=== PATIENT | female | born 1990 | race Caucasian/White ===

== ENCOUNTER 2022-08-12 21:33 | Outpatient (REF) | payer OTHER, SELFPAY | END 2022-08-12 21:34 | disposition home or self-care (01) | LOC: LBN 21:33 | PROVIDERS: PCP Naturopath; Visit Provider Physician Assistant Medical | DX: J02.9 Acute pharyngitis, unspecified (principal) | CPT/HCPCS: 87635; 87798; 86618; 87081 ==

== ENCOUNTER 2022-09-14 15:40 | Outpatient (CLI) | payer OTHER, SELFPAY ==
--- NOTE | 2022-09-14 14:00 | PAPFT_PTH ---
PATIENT: Jada Yi LOC: [facility] U#:[id number] AGE/SX: 32/F ROOM: RE09/14/[address]: Augusta Gallego DO : 1990 BED: DIS: 09/14/2022 SPEC #: [id number] RECD: 09/14/22 17:18 STATUS: MANUEL REQ #: [id number] ROHAN: 09/14/22 14:[address]: Augusta Gallego DEPT: [facility] Cytology RECD BY: Apryl Goode ENTERED: 09/14/22 17:19 SP TYPE: PAPFT OTHR DR: Santo Valentine Tissues: 1 - CX/ENDOCX FOR PAP SMEARS Procedures: PAP THIN PREP/UVM Screening HPV DNA PROBE Comments: [id number]
[2022-09-14 15:58] LABS: TSH (W/Ref FT4) 0.83 uIU/mL (0.36-3.74)
[2022-09-14 16:00] LABS: HCG Quant, Pregnancy < 1 mIU/mL (1-3)
[2022-09-15 00:04] LABS: Prolactin 6.2 ng/mL (See Note)
== END 2022-09-14 15:41 | disposition home or self-care (01) ==
LOC: LBO 15:41
PROVIDERS: PCP Naturopath; Visit Provider Obstetrics & Gynecology
DX: Z11.51 Encounter for screening for human papillomavirus (HPV) (principal)
CPT/HCPCS: 36415; 88142; 84146; 84443; 84702; 87624

== ENCOUNTER 2022-12-21 14:29 | Outpatient (CLI) | payer OTHER, SELFPAY ==
[2022-12-21 11:16] LABS: HCG Quant, Pregnancy 34 mIU/mL (1-3)
== END 2022-12-21 14:30 | disposition home or self-care (01) ==
LOC: LBO 14:30
PROVIDERS: PCP Naturopath; Visit Provider Obstetrics & Gynecology
DX: O26.851 Spotting complicating pregnancy, first trimester (principal)
CPT/HCPCS: 36415; 84702

== ENCOUNTER 2022-12-24 01:48 | Outpatient (CLI) | payer OTHER, SELFPAY ==
[2022-12-24 13:31] LABS: HCG Quant, Pregnancy 58 mIU/mL (1-3)
== END 2022-12-24 01:49 | disposition home or self-care (01) ==
LOC: LBO 01:48
PROVIDERS: PCP Naturopath; Visit Provider Obstetrics & Gynecology
DX: O26.851 Spotting complicating pregnancy, first trimester (principal)
CPT/HCPCS: 36415; 84702

== ENCOUNTER 2023-01-04 10:11 | Outpatient (REF) | payer OTHER, SELFPAY ==
[2023-01-04 11:08] LABS: HCG Quant, Pregnancy 42 mIU/mL (1-3)
== END 2023-01-04 10:12 | disposition home or self-care (01) ==
LOC: LBN 10:11
PROVIDERS: PCP Naturopath; Visit Provider Obstetrics & Gynecology
DX: O26.851 Spotting complicating pregnancy, first trimester (principal)
CPT/HCPCS: 36415; 84702

== ENCOUNTER 2023-02-11 17:48 | Outpatient (REF) | payer OTHER, SELFPAY ==
[2023-02-11 19:50] LABS: Vitamin B12 452 pg/mL (193-986)
[2023-02-16 00:40] LABS: 25-Hydroxy D Total 24 ng/mL; 25-Hydroxy D2 <4.0 ng/mL; 25-Hydroxy D3 24 ng/mL
== END 2023-02-11 17:49 | disposition home or self-care (01) ==
LOC: NCHCN 17:48
PROVIDERS: PCP Nurse Practitioner Family; Visit Provider Nurse Practitioner Family
DX: Z00.00 Encounter for general adult medical examination without abnormal findings (principal)
CPT/HCPCS: 82306; 82607

== ENCOUNTER 2023-09-23 14:28 | Outpatient (REF) | payer OTHER, SELFPAY ==
--- OUTSIDE RECORDS SUMMARY | 2023-09-23 14:30 | XMS_ITS | Clinical Summary ---
Author Organization [facility] [place] [address] Care Team Providers Care Joint Cleaning Machine Operator Name Role Phone Unknown Primary Care Provider Unavailabl e Encounters Date Type Department Care Team Description 09/15/2023 Transcribe Orders eD Incoming Referrals [phone] Meredith Paige CNM History of penicillin allergy from Last 3 Months Social History Tobacco Use Types Packs/Day Years Used Date Smoking Tobacco: Never Assessed Sex and Gender Information Value Date Recorded Sex Assigned at Not on file Gender Identity Not on file Sexual Orientation Not on file Plan of Treatment Health Maintenance Due Date Last Done Comments HIV screen 2006 Hepatitis C Screening 2006 Hepatitis B vaccine (0-59 yrs) (1) 07/13/2007 Tdap adult 07/13/2007 Tetanus vaccine 07/13/2007 HPV test 2018 PAP Smear 2018 Covid-19 Vaccine ( season) 2022 Influenza (Flu) vaccine (1 o f 1 - Influenza standard series) 10/30/2023 Procedures Procedure Name Priority Date/Time Associated Diagnosis Comments ORDS - PROVIDER CARE SCAN 07/13/2023 12:00 AM EDT ORDS - PROVIDER CARE SCAN 07/13/2023 12:00 AM EDT from Last 3 Months Results * SCAN DOC: ORDS - PROVIDER CARE (07/13/2023 12:00 AM EDT) Only the most recent of2 resultswithin the time period is included. Narrative 07/13/2023 12:00 AM EDT Ordered by an unspecified provider. Scanning Provider MEDIA MGR SCAN EXT O RDR/RSLT from Last 3 Months Care Teams Joint Cleaning Machine Operator Relationship Specialty Start Date End Date Unknown None PCP - General 09/15/23
--- OUTSIDE RECORDS SUMMARY | 2023-09-23 14:30 | XMS_ITS | Encounter Summary ---
[place] [address] Care Team Providers Care Tube Dispatcher Name Role Phone Unknown Primary Care Provider Unavailabl e Reason for Referral * Allergy Testing (Routine) - Authorized Specialty Diagnoses / Procedures Referred By Cayetano johnson Referred To Contact Allergy Diagnoses History of penicillin allergy Meredith Paige CNM [address] [place] [address] [facility] [address] [place] [phone] Referral ID Status Reason Start Date Expiration Date Visits Requested Visits Authorized [id number] Authorized Consult, Test & Treat PCP Updated and/or Approved 08/22/2023 08/21/2024 6 6 Encounter Details Date Type Department Care Team (Late st Contact Info) Description 09/15/2023 Transcribe Orders eDH Incoming Referrals [phone] Meredith Paige CNM [address] [place] [address] History of penicillin allergy Social History Tobacco Use Types Packs/Day Years Used Date Smoking Tobacco: Never Assessed Sex and Gender Information Value Date Recorded Sex Assigned at Not on file Gender Identity Not on file Sexual Orientation Not on file documented as of this encounter Plan of Treatment Scheduled Referrals Name Type Priority Associated Diagnoses Orde r Schedule Referral to Allergy Outpatient Referral Routine History of penicillin allergy Ordered: 09/15/2023 documented as of this encounter Visit Diagnoses Diagnosis History of penicillin allergy Personal history of allergy to penicillin documented in this encounter Care Teams Tube Dispatcher Relationship Specialty Start Date End Date Unknown None PCP - General 09/15/23 documented as of this encounter
[2023-09-24 11:25] LABS: Bacterial Vaginosis (BV) Negative (Negative); Candida glabrata Negative (Negative); Candida species group Negative (Negative); Trichomonas vaginalis Negative (Negative)
== END 2023-09-23 14:29 | disposition home or self-care (01) ==
LOC: LBN 14:28
PROVIDERS: PCP Nurse Practitioner Family; Visit Provider Midwife
DX: N76.0 Acute vaginitis (principal); Z3A.27 27 weeks gestation of pregnancy; O26.892 Other specified pregnancy related conditions, second trimester
CPT/HCPCS: 81513; 87481; 87661

== ENCOUNTER 2023-12-23 09:02 | Inpatient (IN) | payer OTHER, SELFPAY ==
[2023-12-23] VITALS (37 sets, daily range): BP systolic 101–152; BP diastolic 56–79; PULSE 70–146; RESP 14–18; TEMP 35.7–36.8; O2SAT 96–100; BMI 30.7
--- NOTE | 2023-12-23 08:33 | HPE_ITS ---
Date of service: 12/23/23 Time of Service: 08:33 Assessment and Plan Assessment and plan (1) Prolonged rupture of membranes: Status: Acute Assessment and plan: A: 33 yo @ 40+5 wks, PROM >60 hours; desired at home, maternal exhaustion Onset of labor after castor oil yesterday but contractions diminished today Category 1 tracing, GBS negative, afebrile, normotensive Increased risk for PPH, no increase risk for SD; Complete care by homebirth service LM and she accompanies pt today Transfer care to [facility] intrapartum for labor augmentation, pain management, d elivery P: Admit to BC, CBC, T&S, UDS, initiate IVF in preparation for epidural Pt desires pain management and consents to antibiotic prophylaxis Pitocin augmentation recommended to pt, she declines at this time, wants to sleep first Dr. Gallego consulting (2) 40 weeks gestation of : Status: Acute (3) Slow progress in first stage of labor: Status: Acute OB-HPI Labor/Delivery History of Present Illness Reason for Visit: Term PROM, Prolonged Labor Chief Complaint: Other (Planned home with LM, SROM 12/19 @ 2230, labor onset 12/21, progressed to 8cm as of 0030 today per LM report, contractions diminished. Transferred to [facility] for evaluation, augmentation, pain management and safe delivery.). WILTON Calculator Estimated Delivery Date Method Current WG Current Estimate 12/18/23 LMP (Certain) 40w 5d History of Present Expected Delivery Route/Plan planned home Assessment: History Reviewed & Current (Care given by LM) Informed Consent Informed Consent: Regional Anesthesia, Risk,Benefits,Alternatives Discussed and Other (Pt consents to antibiotic prophylaxis for prolonged SROM) Review of Systems Narrative: ROS reviewed and noncontributory other than HPI PFSH All Active Problems (Updated 12/23/23 @ 13:59 by Sara Coleman) Advanced maternal age, 1st (Acute) Slow progress in first stage of labor (Acute) 40 weeks gestation of (Acute) Prolonged rupture of membranes (Acute) (Acute) Complaint of feeling depressed (Acute) Anxiety (Chronic) Medical History (Updated 12/23/23 @ 13:59 by Sara Coleman) Marijuana use Cigarette smoker Ovarian cyst Panic attacks Colon polyps Irritable bowel syndrome Spotting in early DUB (dysfunctional uterine bleeding) Family History (Updated 03/09/23 @ 16:24 by Mary Membreno RN) Mother No problems noted. Father Cancer Maternal Grandmother Breast cancer Hypertension Maternal Grandfather Colon cancer Paternal Grandfather No problems noted. Paternal Grandmother No problems noted. Social History (Updated 03/09/23 @ 16:21 by Mary Membreno RN) Smoking/Tobacco Use Status: Former Tobacco Use tobacco type: cigarettes Quit D ate: 02/28/19 Tobacco: How many years used: 10 Second Hand Exposure: Yes Smoking risk assessment performed?: Yes Alcohol Intake: current Alcohol Intake frequency: a few times a week Alcohol type: wine and hard liquor Drug use: Daily Substance use type: marijuana Adopted: No Caregiver/Support person: No Foster care: No Household members: significant other Housing: house Number of Children: 0 Communication Needs: None Education Level: college Do you need help understanding health information?: Never 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 Pets and animals: Yes Pets and animals: cat(s) and dog(s) Sexually active: Yes Do you think of yourself as: straight/heterosexual Current gender identity: female What is your relationship status?: living with partner How often do you talk on the phone with friends or family?: three or more times per week How often do you get together with friends or relatives?: once per week How often do you attend mandaen or adventist services?: decline to answer Do you belong to any clubs or organized social groups?: no Panel score (0-1 are the most socially isolated patients): 2 What type of physical activity do you participate in: walking and yoga Duration: 30-45 minutes/day Frequency: daily Dora/Hoahaoism: Non samaritan Special dora needs: No Agree to transfusion: Yes Seatbelt use: always Helmet use: Yes Helmet use: sometimes Drive intox or ride w/intox package car driver: No Working smoke detector in home: Yes Carbon monox detector in home: Yes Firearms in home: Yes Firearms unloaded and locked: Yes Do you feel safe at home: Yes Do you feel safe in your relationship?: Yes Victim of physical abuse: No Victim of emotional abuse: No Victim of sexual abuse: No History History 3 Para 0 Hx # Term Pregnancies 0 Multiple births 0 Hx # Pregnancies 0 Ectopic pregnancies 0 AB induced 1 Hx Number of Living Children 0 AB spontaneous 1 Meds Allergies and Home Medications Home Medications ?Medication ?Instructions ?Recorded ?Confirmed ?Type vits 75-iron 28 mg-folic pkg PO 12/21/22 01/04/23 History acid 800 mcg-omega3 440 mg oral pack (One Daily ) Exam Physical Exam Vital signs: Temp Resp 98.1 F 16 12/23/23 08:20 12/23/23 08:20 Vital Signs Reviewed: Yes Constitutional Constitutional: moderate distress, average body habitus and cooperative Detailed Labor and Delivery Exam Dilation: 7 Effacement (%): 100 station: -2 Cervix position: mid Stevenson Score: Cervical Points Exam 0 1 2 3 Dilation Closed 1-2cm 3-4 cm 5-6cm Effacement 0-30% 40-50% 60-70% 80% Consistency Firm Medium Soft Station -3 -2 -1,0 +1,+2 Position Posterior Mid Anterior Amniotic Membrane Status: Ruptured (12/19 @ 2230) Rupture Method: Spontaneous Amniotic Fluid: Clear Contraction Frequency(min): 1-2 per 10 minutes Contraction Intensity: Moderate Fetus A Heart Rate Baseline: 135 Monitor Accelerations: 15 X 15 Monitor Decelerations: None Variability: Moderate (6-25 BPM) Presentation: Cephalic Categories: Category I Est. Weight: 7 lb 7.931 oz Est. Weight: 3400 gms Date of Membrane Rupture: 12/20/23 Time of Membrane Rupture: 22:30 HEENT Exam HEENT Exam: Normal Neck Exam Neck Exam: Normal Chest/Brest/Axilla Exam Chest Exam: Normal Breast Exam Breast Exam: Not Done Respiratory Exam Respiratory Exam: Normal Cardiovascular Exam Cardiovascular Exam: Normal Abdominal Exam Abdominal Exam: Normal (Gravid, nontender) Rectal Exam Rectal Exam: Normal Exam Exam: Normal Extremities Exam Extremities Exam: Normal Back/Spine/Pelvis Exam Back Exam: Normal Pelvis Adequate: Yes Skin Exam Skin Exam: Normal Neurological Exam Neurological Exam: Normal Psychiatric Exam Psychiatric Exam: Normal (congruent with situation, sad, tearful, exhausted) Results Results Group Beta Strep: Negative Blood Type: A+ Rubella Status: Immune Varicella Immunity: Immune Lab Results: labs from transfer record: neg for HIV, RPR, Hep B and C, CT and GC. cfDNA screen negative. HSV IgG negative 1 hr glucola screen 156, did a 2 hr postprandial glucose which was 121, no other glucose screening in records Risk Assessment Risk for Shoulder Dystocia Increased Risk?: No Risk for Post- Hemorrhage At Risk?: Yes (prolonged SROM, prolonged labor) Counseled re: Active Management: Yes Risks Reviewed Risks Reviewed Upon Admission: Yes
[2023-12-23] MEDS: Lactated Ringers 1,000 ML 125 ML IV ×3 (09:30→18:37)
[2023-12-23 09:42] LABS: HCT 38.1 % (36.0-46.0); HGB 13.2 g/dL (11.2-15.7); MCH 31.6 pg (27.0-33.0); MCHC 34.6 % (32.0-36.0); MCV 91 fL (80-95); Platelet Count 253 10^3/uL (130-400); RBC 4.18 10^6/uL (3.93-5.22); RDW 13.1 % (11.7-14.6); RDW-SD 43.5 fL; WBC 16.19 10^3/uL (4.4-10.8)
--- NOTE | 2023-12-23 11:05 | W.ANESNEU ---
Epidural/Spinal Catheter Date Performed: 12/23/23 Procedure Start: 10:30 Procedure Stop: 11:00 Requesting Provider: Sara Coleman Procedure Location: Obstetrics Reason Performed: Labor Epidural Standard Monitors Applied: Blood Pressure, SpO2 and See EMR for corresponding vital signs Patient Position: Sitting Sedation Given (Indicate Dose Given): No Sedation given Patient Mental Status: Awake Sterility: Hand Hygiene, Surgical Cap, Surgical Mask, Sterile Gloves, Sterile Drape/Sheet, Eye Protection and Chlorhexidine Procedure Location: L3-L4 Interspace Epidural Needle: Tuohy 18 Gauge Needle Length: 3.5 Inch Needle Approach: Midline Epidural Procedure: Skin Prepped, Sterile Drape Placed, 1% Lidocaine to skin and subcutaneous tissue with 25G needle, Tuohy Needle placed, DIONNA to Saline Used, Epidural Catheter Placed, Negative Heme, Negative CSF Flow and Tuohy Needle Removed Catheter Placed?: Catheter Placed Test Dose (Indicate Dose Given): 3ml 1.5% Lidocaine with 1:200K Epinephrine Given and Negative Test Dose Loss of Resistance Depth (cm): 6 Catheter depth at skin (cm): 15 Dressing: Sorbaview Dressing Placed, Mastisol Used and Dressing reinforced with Tape Epidural Provider Bolus (Indicate Dose Given): Total bolus dose given in 3-5 ml divided doses and Total Ropivacaine 0.1% with Fentanyl 2mcg/ml Given from pump. (ml) Dose:: 4ml Additives (Indicate Dose Given ): None Infusion Medication: Medication Infusion Began Medication Infusion: Ropivacaine 0.1% with Fentanyl 2mcg/ml Maintenance Infusion Rate (ml/hour): 12 PCEA Bolus Dose (ml): 5 Block Level: T7 Paresthesia: None Ultrasound: Not Used Number of Attempts (See previous attempts in note section): 2 Procedure Tolerated: No Complications and Patient tolerated well Procedure Outcome: Successful Procedure Comment:: Miss Yi is being evaluated for placement of a labor epidural. Consent was discussed including risk benefits of the procedure. Miss Yi has opted to move forward with placement. Attempt 1 L4/5 interspace the epidural space was accessed without complication, the catheter was threaded and at approximately 3cm depth she began to complain of paresthesia down her left buttock and leg, given that the paresthesia where persistent with advancement of the catheter and the depth of the catheter placement was no more than 3 cm. the needle and catheter was removed. Attempt 2 at L3/4 interspace was placed without complication or paresthesia, DIONNA at 6cm and the catheter was placed at a depth of 15 cm Performed By: Noe Díaz Supervised By: Seda Chu
--- NOTE | 2023-12-23 11:15 | ANES.PREOP_ITS ---
General Info Date of Service Date Performed: 12/23/23 Height: 5 ft 6 in Weight: 86.183 kg Body Mass Index (BMI): 30.7 Meds Allergies and Home Medications Allergies Allergy/AdvReac Type Severity Reaction Status Date / Time Penicillins AdvReac Hives Verified 01/04/23 09:57 Home Medication ?Medication ?Instructions ?Recorded vits 75-iron 28 mg-folic pkg PO 12/21/22 acid 800 mcg-omega3 440 mg oral pack (One Daily ) Current Visit Medications: Current Medications Generic Name Dose Route Start Last Admin Trade Name Freq PRN Reason Stop Dose Admin Ringer's Solution 1,000 mls @ 125 mls/hr 12/23/23 09:15 IV INFUSION JORDY IV Miscellaneous Supplies 1 each 12/23/23 09:15 Iv Access IV DIRECTED JORDY Sodium Chloride 0 ml 12/23/23 09:02 Normal Saline Flush 10 Ml Syr IVP PRN PRN Sodium Chloride 0 ml 12/23/23 20:00 Normal Saline Flush 10 Ml Syr IVP BID JORDY Sodium Chloride 0 ml 12/23/23 09:02 Normal Saline 10 Ml Vial IJ DIRECTED PRN PFSH Active Problems Active Problems: Problem Status Onset Code Prolonged rupture of membranes Acute O42.90 Acute Z34.90 Complaint of feeling depressed Acute R45.89 Anxiety Chronic F41.9 Medical History Medical History (Updated 12/23/23 @ 08:32 by Sara Coleman) Spotting in early DUB (dysfunctional uterine bleeding) Tobacco Smoking/Tobacco Use Status: Former Tobacco Use Second hand exposure: Yes Alcohol Alcohol Intake: current Alcohol intake frequency: a few times a week Alcohol type: wine and hard liquor Substance Use Substance use: Daily Substance use type: marijuana Prental History History 2 3 Para 0 Hx # Term Pregnancies 0 Multiple births 0 Hx # Pregnancies 0 Ectopic pregnancies 0 AB induced 1 Hx Number of Living Children 0 AB spontaneous 1 Vital Signs and Lab Results Vital Signs Most Recent Vital Signs in EMR: Most Recent Vital Signs Temp Pulse Resp BP Pulse Ox 36.7 C 93 H 16 129/67 97 12/23/23 08:20 12/23/23 11:10 12/23/23 08:20 12/23/23 11:10 12/23/23 10:52 Lab Results 12/23/23 09:28 Blood Type / Crossmatch: 2 Antibody Screen NEGATIVE 12/23/23 Complete Blood Count: 2 White Blood Count 16.19 10^3/uL (4.4-10.8) H 12/23/23 09:28 Red Blood Count 4.18 10^6/uL (3.93-5.22) 12/23/23 09:28 Hemoglobin 13.2 g/dL (11.2-15.7) 12/23/23 09:28 Hematocrit 38.1 % (36.0-46.0) 12/23/23 09:28 Platelet Count 253 10^3/uL (130-400) 12/23/23 09:28 Complete Metabolic Panel: 2 No Data to Display Liver Function Panel: 2 No Data to Display Coagulation Panel: 2 No Data to Display Cardiac Panel: 2 No Data to Display Arterial Blood Gas: 2 No Data to Display Venous Blood Gas: 2 No Data to Display Pancreas Panel: 2 No Data to Display Thyroid Panel: 2 No Data to Display Infectious Disease: 2 No Data to Display Blood Cultures: 2 No Data to Display Toxicology Panel: 2 No Data to Display Panel: 2 No Data to Display Anesthesia Assessment and Plan Anesthesia History Personal History: No History of Anesthesia Complications and No History of General Anesthesia Family History: No Family History of Anesthesia Complications Exercise Tolerance Exercise Tolerance: Metabolic Equivalents>4 Pertinent Negatives Pertinent Negatives: No Symptoms of GERD, No Major Cardiovascular Symptoms or Complaints, No Major Pulmonary Symptoms or Complaints and No History of CVA/TIA Cardiac & Pulmonary Exam Cardiac Exam: Normal S1/S2 Heart Sounds Pulmonary Exam: Clear Bilateral Breath Sounds Implantable Cardiac Device Does patient have a Pacemaker or an ICD?: No Airway Exam Known Difficult Airway: No Mallampati Class: 2 Mouth Opening: Normal (> 3cm) Thyromental Distance: Greater than 3 cm Neck Range of Motion: Full ROM Neck Circumference: Normal Teeth Condition: Normal Dentition ASA Classification ASA Score: ASA 2 Emergency Case?: No NPO Status NPO Status: Full Stomach Status Status: Confirmed Anesthesia Plan Resuscitation Status: Full Code Anesthesia Technique: Labor Epidural Airway Planned: Natural Airway Monitors Used: Standard Monitors Preoperative Comments:: Miss Yi is being consented for a labor epidural in the setting of and prolonged rupture of membranes. Risks and benefits of the labor epidural were discussed. All questions were sought and answered. Miss Yi expresses wishes to continue with the placement of the epidural.
[2023-12-23] MEDS: Penicillin G POT. 5,000,000 UNITS in Normal Saline 100 ML 200 UNITS IVPB (11:58)
[2023-12-23] MEDS: FentaNYL/ROPIvacaine 2 mcg/ml and 0.1% 200 ML CADD Cassette EP (11:58)
[2023-12-23 15:17] LABS: *AMPHETAMINES SCREEN URINE Negative (Negative); *BARBITURATES SCREEN URINE Negative (Negative); *BENZODIAZEPINES SCREEN URINE Negative (Negative); Cannabinoids THC Negative (Negative); Cocaine Screen,Urine Negative (Negative); METHADONE URINE SCREEN Negative (Negative); OPIATES URINE SCREEN Negative (Negative)
[2023-12-23 15:19] LABS: Tricyclic Antidepressants Negative (Negative)
--- NOTE | 2023-12-23 15:59 | W.PM.OBNL1 ---
Date of service: 12/23/23 Time of Service: 14:00 Informed Consent Informed Consent: Regional Anesthesia, Risk,Benefits,Alternatives Discussed and Other (Pt consents to antibiotic prophylaxis for prolonged SROM) Pelvic Exam Comments: deferred Contractions Monitor Mode: External Contraction Frequency(min): q10-15 Intensity: Moderate Fetus A Monitor: External (US) Heart Rate Baseline: 140 Variability: Moderate (6-25 BPM) Categories: Category I Accelerations: Present Decelerations: None Amniotic Membrane Status: Ruptured Assessment and Plan Assessment and plan (1) Slow progress in first stage of labor: Status: Acute Assessment and plan: A: Inadequate pain control though epidural partially effective Inadequate contraction pattern, category 1 tracing Category 1 tracing, PCN prophylaxis 1st dose infused Pt declines augmentation due to poor pain control P: LINEN ATTENDANT & Dr. Gallego aware of difficulties with anesthesia LINEN ATTENDANT discussing options with pt Will hold augmentation or further cvx exam until pt more comfortable Continue PCN prophylaxis q4 hrs, try maternal position changes Objective Abnormal lab results 12/23/23 Range/Units 09:28 WBC 16.19 H (4.4-10.8) 10^3/uL Temp Pulse Resp BP Pulse Ox 98.1 F 146 H 14 142/68 H 97 12/23/23 08:20 12/23/23 15:40 12/23/23 11:39 12/23/23 15:40 12/23/23 10:52 Laboratory Results WBC 16.19 10^3/uL (4.4-10.8) H 12/23/23 09:28 RBC 4.18 10^6/uL (3.93-5.22) 12/23/23 09:28 Hgb 13.2 g/dL (11.2-15.7) 12/23/23 09:28 Hct 38.1 % (36.0-46.0) 12/23/23 09:28 MCV 91 fL (80-95) 12/23/23 09:28 MCH 31.6 pg (27.0-33.0) 12/23/23 09:28 MCHC 34.6 % (32.0-36.0) 12/23/23 09:28 RDW 13.1 % (11.7-14.6) 12/23/23 09:28 Plt Count 253 10^3/uL (130-400) 12/23/23 09:28 MPV 10.0 fL (8.0-11.0) 12/23/23 09:28 Urine Opiates Screen Negative (Negative) 12/23/23 14:30 Urine Methadone Screen Negative (Negative) 12/23/23 14:30 Ur Barbiturates Screen Negative (Negative) 12/23/23 14:30 Ur Tricyclics Screen Negative (Negative) 12/23/23 14:30 Ur Amphetamines Screen Negative (Negative) 12/23/23 14:30 U Benzodiazepines Scrn Negative (Negative) 12/23/23 14:30 Urine Cocaine Screen Negative (Negative) 12/23/23 14:30 Ur THC Screen Negative (Negative) 12/23/23 14:30 ABO/Rh A Positive 12/23/23 09:28 Antibody Screen NEGATIVE 12/23/23 09:28 Vital Signs Reviewed: Yes Subjective Interval history since last seen: Epidural is not satisfactory, left leg and lowerback remain painful with contractions. Pt was able to sleep an hour or so, declines pitocin augmentation until she is more comfortable.
[2023-12-23] MEDS: Penicillin G POT. 3,000,000 UNITS in Normal Saline 50 ML 100 UNITS IVPB (16:35)
--- NOTE | 2023-12-23 16:44 | W.OBCONSULT ---
Date of service: 12/23/23 Time of Service: 16:44 Assessment and Plan Assessment and plan (1) Prolonged rupture of membranes: Status: Acute Assessment and plan: Patient has significantly prolonged rupture of membranes greater than 48-hour as and no labor progress beyond 7 cm. She declines further intervention. She has an epidural for pain control. She will be taken to the OR for primary section. The risk, benefits, and alternatives of delivery have been explained to the patient in full informed consent was obtained. She will have antibiotic prophylaxis with azithromycin and Ancef prior to her procedure. She will have a Millan catheter for continuous bladder drainage. All questions were answered to the best of my ability. Pediatrics has been notified. Anesthesia at the bedside. OR crew aware. 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 She is 5 days beyond her due date. She had spontaneous rupture of membranes greater than 48 hours ago. She labored at home and then transition to the hospital for care. She received an epidural for pain control and had a dysfunctional labor pattern francy approximately every 10 minutes. With no cervical change or progress, the decision was made for delivery. She was offered Pitocin augmentation and declined. The risk, benefits, and alternatives of delivery were explained to the patient including risk of infection, bleeding, injury to surrounding organs, risk of anesthesia, risk of DVT. She will have antibiotic prophylaxis with both Ancef and Zithromax. She did receive 2 doses of penicillin previously for prolonged rupture of membranes. Consults Consult date: 12/23/23 Review of Systems Narrative: Painful irregular contractions. Constitutional Constitutional: Reports system reviewed and no additional complaints, except as documented ENT Ears, Nose, Mouth, and Throat: Reports system reviewed and no additional complaints, except as documented Cardiovascular Cardiovascular: Reports system reviewed and no additional complaints, except as documented Respiratory Respiratory: Reports system reviewed and no additional complaints, except as documented Gastrointestinal Gastrointestinal: Reports system reviewed and no additional complaints, except as documented Genitourinary Genitourinary: Reports system reviewed and no additional complaints, except as documented Musculoskeletal Musculoskeletal: Reports system reviewed and no additional complaints, except as documented PFSH All Active Problems (Updated 12/23/23 @ 13:59 by Sara Coleman) Advanced maternal age, 1st (Acute) Slow progress in first stage of labor (Acute) 40 weeks gestation of (Acute) Prolonged rupture of membranes (Acute) (Acute) Complaint of feeling depressed (Acute) Anxiety (Chronic) Medical History (Updated 12/23/23 @ 13:59 by Sara Coleman) Marijuana use Cigarette smoker Ovarian cyst Panic attacks Colon polyps Irritable bowel syndrome Spotting in early DUB (dysfunctional uterine bleeding) Family History (Updated 03/09/23 @ 16:24 by Mary Membreno RN) Mother No problems noted. Father Cancer Maternal Grandmother Breast cancer Hypertension Maternal Grandfather Colon cancer Paternal Grandfather No problems noted. Paternal Grandmother No problems noted. Social History (Updated 03/09/23 @ 16:21 by Mary Membreno RN) Smoking/Tobacco Use Status: Former Tobacco Use tobacco type: cigarettes Quit Date: 02/28/19 Tobacco: How many years used: 10 Second Hand Exposure: Yes Smoking risk assessment performed?: Yes Alcohol Intake: current Alcohol Intake frequency: a few times a week Alcohol type: wine and hard liquor Drug use: Daily Substance use type: marijuana Adopted: No Caregiver/Support person: No Foster care: No Household members: significant other Housing: house Number of Children: 0 Communication Needs: None Education Level: college Do you need help understanding health information?: Never 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 Pets and animals: Yes Pets and animals: cat(s) and dog(s) Sexually active: Yes Do you think of yourself as: straight/heterosexual Current gender identity: female What is your relationship status?: living with partner How often do you talk on the phone with friends or family?: three or more times per week How often do you get together with friends or relatives?: once per week How often do you attend spiritism or zoroastrian services?: decline to answer Do you belong to any clubs or organized social groups?: no Panel score (0-1 are the most socially isolated patients): 2 What type of physical activity do you participate in: walking and yoga Duration: 30-45 minutes/day Frequency: daily Dora/Restorationism: Non jain Special dora needs: No Agree to transfusion: Yes Seatbelt use: always Helmet use: Yes Helmet use: sometimes Drive intox or ride w/intox commercial driver: No Working smoke detector in home: Yes Carbon monox detector in home: Yes Firearms in home: Yes Firearms unloaded and locked: Yes Do you feel safe at home: Yes Do you feel safe in your relationship?: Yes Victim of physical abuse: No Victim of emotional abuse: No Victim of sexual abuse: No History History 3 Para 0 Hx # Term Pregnancies 0 Multiple births 0 Hx # Pregnancies 0 Ectopic pregnancies 0 AB induced 1 Hx Number of Living Children 0 AB spontaneous 1 Exam Narrative Exam Narrative: Patient is alert, exhausted, in no acute distress HENMT Head: normal to inspection Eyes General: appearance normal, both eyes and all related structures Neck Neck: normal visual inspection Resp Effort & Inspection: normal respiratory effort GI Inspection: normal to inspection Other: Gravid, vertex Skin General skin exam: no rashes or lesions noted Results Last Vital Signs Temp 98.1 F 12/23/23 16:24 Pulse 83 12/23/23 16:29 Resp 18 12/23/23 16:24 BP 152/77 H 12/23/23 16:29 Pulse Ox 100 12/23/23 16:24 Labs 12/23/23 09:28 Labs: Laboratory Results - last 24 hr 12/23/23 12/23/23 09:28 14:30 WBC 16.19 H RBC 4.18 Hgb 13.2 Hct 38.1 MCV 91 MCH 31.6 MCHC 34.6 RDW 13.1 Plt Count 253 MPV 10.0 Urine Opiates Screen Negative Urine Methadone Screen Negative Ur Barbiturates Screen Negative Ur Tricyclics Screen Negative Ur Amphetamines Screen Negative U Benzodiazepines Scrn Negative Urine Cocaine Screen Negative Ur THC Screen Negative ABO/Rh A Positive Antibody Screen NEGATIVE
[2023-12-23] MEDS: Azithromycin 500 MG VIAL (17:11)
[2023-12-23] MEDS: ceFAZolin 2 GM/50 ML BAG IVPB (17:13)
[2023-12-23] MEDS: Bupivacaine 0.25% Pres-Free 30 ML VIAL (17:45)
--- NOTE | 2023-12-23 18:40 | PDOC.OPNB_ITS ---
Date of service: 12/23/23 Time of Service: 18:41 Operative Note Operative Note Delivery Method: Unscheduled STAT: No DATE OF PROCEDURE: 12/23/23 PRE-OP DIAGNOSES: Labor arrest, prolonged rupture of membranes POST-OP DIAGNOSES: same Same with delivery of a viable female infant. 5 cm posterior left fundal pedunculated fibroid. PROCEDURE: Primary low-transverse section SURGEON: Augusta Gallego Imaging Technologist: Terrence Glass Anesthesia: local and spinal Estimated blood loss (mL): 500 Pathology: none sent Complications: None Patient was transported to: floor Patient's condition: stable Indications: Labor arrest, prolonged rupture of membranes Findings: Delivery of a viable female infant with Apgars 8 and 9, 6 pounds 2 ounces. Short umbilical cord. Thin umbilical cord. 5 cm posterior left fundal pedunculated fibroid Procedure Description: After full informed consent was obtained, patient taken the operating suite with an IV running. She is placed in the seated position and her previous epidural was removed and spinal anesthesia administered. She was then placed in the dorsal supine position with leftward tilt and prepped and draped in the usual sterile fashion. She had a vaginal preparation and Millan catheter insertion for continuous bladder drainage. As of note she did have 1000 cc of urine in her Millan upon initial insertion. She received Ancef, 2 g and 500 mg of Zithromax for surgical site infection prophylaxis. She had pneumatic compression stockings for DVT prophylaxis. The lower anterior abdomen was infiltrated with quarter percent Marcaine and a Pfannenstiel skin incision was made which was then carried down to the underlying fascia. The fascia was then nicked in the midline and the fascial incision extended sharply laterally. The rectus muscles were identified and in the midline. The peritoneum was identified tented up and entered sharply and the peritoneal incision extended superiorly and inferiorly. At this point the bladder blade was inserted and the vesicouterine peritoneum identified tented up and entered sharply. The bladder flap was then created and the bladder blade reinserted. A low transverse uterine incision was made with a scalpel and extended bluntly laterally. As of note amniotic fluid at that point was thick, mucoid, and cloudy. There was no meconium staining. The vertex was delivered without difficulty. There was no evidence of nuchal cord. A three-vessel cord was noted clamped x 2 and cut and the was handed off to the waiting professor of early childhood education. At this point cord blood gas segment was obtained though not utilized as Apgars were appropriate. Cord blood sample was obtained. The placenta was then manually expressed from the uterus and the uterus exteriorized and cleared of all clot an d debris. Patient would prefer to take her placenta home. On inspection of the uterus there is noted to be a 5 cm posterior pedunculated uterine fibroid at the left fundus. Ovaries appeared normal. Tubes appeared normal. The uterine incision was then closed using 0 Monocryl suture in a 2 layer closure with the first being running locked and the second being imbricating. Excellent hemostasis was achieved. The uterus was returned to the abdomen. Abdomen irrigated with copious amounts of normal saline and the fascial incision closed using 0 Vicryl suture. Subcu space was irrigated and reapproximated with 3-0 Vicryl suture. At this point the skin edge was reapproximated with 4-0 undyed Monocryl and Steri-Strips and a sterile dressing were placed. Patient had a Millan catheter draining clear yellow urine when she was returned to the floor in stable condition. EBL: 500 mL Findings: Delivery of viable female weighing 6 pounds 2 ounces with Apgars 8 and 9. Short umbilical cord that was somewhat thin in nature. 5 cm posterior fundal fibroid. Complications: None apparent Fluids: Crystalloid per anesthesia Pathology: None sent
[2023-12-24] VITALS (13 sets, daily range): BP systolic 103–132; BP diastolic 58–74; PULSE 70–89; RESP 16–18; TEMP 36.6–37.2; O2SAT 98–99
[2023-12-24 06:40] LABS: Abs Immature Grans 0.06 10^3/uL (0.0-0.06); Absolute Basophil Count 0.03 10^3/uL (0.0-0.2); Absolute Lymphocyte Count 1.52 10^3/uL (1.2-3.4); Absolute Monocyte Count 0.84 10^3/uL (0.1-0.8); Absolute Neutrophil Count 8.64 10^3/uL (1.2-6.7); Basophils % 0.3 %; HGB 11.1 g/dL (11.2-15.7); Immature Grans % 0.5 %; Lymphocytes % 13.7 %; MCH 31.8 pg (27.0-33.0); MCHC 33.6 % (32.0-36.0); MCV 95 fL (80-95); MPV 10.2 fL (8.0-11.0); Monocytes % 7.6 %; Neutrophils % 77.9 %; Platelet Count 214 10^3/uL (130-400); RBC 3.49 10^6/uL (3.93-5.22); RDW 13.4 % (11.7-14.6); RDW-SD 46.2 fL; WBC 11.09 10^3/uL (4.4-10.8)
[2023-12-24] MEDS: Normal Saline Flush 10 ML SYR IVP ×2 (07:40→13:39)
[2023-12-24] MEDS: Ketorolac 30 MG/ML VIAL IVP ×3 (07:40→20:00)
--- NOTE | 2023-12-24 08:46 | W.PM.OBPNV1 ---
Date of service: 12/24/23 Time of Service: 08:46 Assessment and Plan Assessment and plan (1) Status post primary low transverse section: Status: Acute Assessment and plan: Postoperative day #1 status post primary low-transverse section. Clinically doing well. Will continue to monitor closely for signs of endomyometritis. White cell count is normal this morning. Afebrile. Uterus is appropriately tender. Patient also had bladder over distention and Millan catheter will remain in situ for 24 hours after delivery. If evidence of continued bladder dysfunction, Millan catheter will be reinserted for continued bladder rest. All questions answered. Anticipate discharge within the next 24 to 48 hours. (2) Uterine fibroid: Status: Acute Assessment and plan: 4 cm pedunculated left fundal fibroid. Benign appearing. Subjective Subjective Interval history: Patient seen and examined this morning. Doing well. Events of her labor and delivery process reviewed. All questions answered. Conversation regarding her fibroid which appears benign, and nonintrusive had also this morning. Slight itching. Will get Narcan. Vital signs are stable. Hemoglobin stable at 11. White count is appropriate. Millan catheter is in situ due to over distention of her bladder. We discussed removing this this evening, and if unable to void, reinsertion of the Millan would be the next appropriate step. Patient's Mood: Appropriate [place] baby status: Doing well, Nursing well, Rooming in and Strong Bonding Observed Exam Physical Exam Vital signs: Temp Pulse Resp BP Pulse Ox 98.8 F 76 17 103/58 L 99 12/24/23 08:30 12/24/23 08:30 12/24/23 08:30 12/24/23 08:30 12/24/23 08:30 Vital Signs Reviewed: Yes Constitutional Constitutional: no acute distress HEENT Exam HEENT Exam: Normal Neck Exam Neck Exam: Normal Respiratory Exam Respiratory Exam: Normal Cardiovascular Exam Cardiovascular Exam: Normal Abdominal Exam Abdomen: Tender Comments: Mepilex dressing in place Fundal Exam Fundus: Below Umbilicus and Firm Extremities Exam Extremity Exam: Edema (1+ bilateral); negative Calf Tenderness Skin Exam Skin Exam: Normal Neurological Exam Neurological Exam: Normal Psychiatric Exam Psychiatric Exam: Normal Results Hemoglobin/Hematocrit: Hgb 11.1 g/dL (11.2-15.7) L D 12/24/23 06:10 Hct 33.0 % (36.0-46.0) L 12/24/23 06:10 Abnormal Lab Findings: Abnormal Labs 12/23/23 12/24/23 09:28 06:10 WBC 16.19 H 11.09 H RBC 3.49 L Hgb 11.1 L D Hct 33.0 L Absolute Neutrophils 8.64 H Absolute Monocytes 0.84 H
[2023-12-24] MEDS: diphenhydrAMINE 25 MG CAP PO ×3 (09:01→18:22)
[2023-12-24] MEDS: oxyCODONE 5 mg/Acetaminophen 325 mg TAB PO ×3 (10:50→20:30)
[2023-12-24] MEDS: Docusate Sodium 100 MG CAP PO ×2 (15:56→20:45)
--- NOTE | 2023-12-24 17:58 | OBPPV_ITS ---
Date of service: 12/24/23 Time of Service: 17:58 Assessment and Plan Assessment and plan (1) Status post primary low transverse section: Status: Acute Assessment and plan: Postoperative day #1 status post primary section. Baby being transferred to [facility] for further services. 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 Will attempt to transfer mom when bed available, sarah akhil discharge tomorrow if medically stable. Subjective Subjective Interval history: Called to see the patient this afternoon as baby is being discharged and transferred to intensive care unit at [facility]. initially is evaluated for sepsis, and in further studies was noted to have a tra cheoesophageal fistula. Attempt made to transfer mom to [facility] for ongoing care as well, however no bed is currently available. Patient is understanding of the situation. She will be discharged as soon as medically able, for transferred to department if a bed becomes available. Patient's Mood: Appropriate [place] baby status: Other (Baby being transferred to [facility]) Exam Physical Exam Vital signs: Temp Pulse Resp BP Pulse Ox 98.4 F 89 16 103/74 99 12/24/23 13:09 12/24/23 13:09 12/24/23 13:09 12/24/23 13:09 12/24/23 13:09 Vital Signs Reviewed: Yes Constitutional Constitutional: no acute distress Respiratory Exam Respiratory Exam: Normal Cardiovascular Exam Cardiovascular Exam: Normal Abdominal Exam Abdomen: Tender Results Hemoglobin/Hematocrit: Hgb 11.1 g/dL (11.2-15.7) L D 12/24/23 06:10 Hct 33.0 % (36.0-46.0) L 12/24/23 06:10 Abnormal Lab Findings: Abnormal Labs 12/23/23 12/24/23 09:28 06:10 WBC 16.19 H 11.09 H RBC 3.49 L Hgb 11.1 L D Hct 33.0 L Absolute Neutrophils 8.64 H Absolute Monocytes 0.84 H
[2023-12-24] MEDS: Zolpidem 5 MG TAB PO ×2 (21:45→22:33)
--- NOTE | 2023-12-25 06:48 | W.ANESPOSTOP ---
Postoperative Evaluation Date, Time and Location Date Performed: 12/24/23 Time Performed: 14:35 Patient Location: Obstetrics Vital Signs Most Recent Imported Vital Signs: Most Recent Vital Signs Temp Pulse Resp BP Pulse Ox 36.6 C 70 18 118/69 99 12/24/23 20:05 12/24/23 20:05 12/24/23 20:05 12/24/23 20:05 12/24/23 13:09 Pain Score Most Recent Pain Score: Most Recent Pain Score Pain Level [Abdomen] 3 12/24/23 20:05 Pain Level 3 12/24/23 20:30 Assessment Mental Status: Awake (Alert & Oriented to Patient Baseline) Airway and Respiratory Function: Patent airway with normal (patient baseline) respiratory exam Cardiovascular Function: Hemodynamically Stable Hydration Status: Adequately Hydrated Nausea & Vomiting: No Nausea or Vomiting Pain: Pain is tolerable per patient Peripheral Nerve Block: Patient did not receive a nerve block Postoperative Comments:: Patient reported some itching and rash at site of tape application on back from epidural. Otherwise, patient reports pain is tolerable and has been up to ambulate. The patient is emotionally appropriate, infant will be transferred to [facility] for further management.
[2023-12-25] MEDS: Ibuprofen 600 MG TAB PO (07:08)
[2023-12-25] MEDS: oxyCODONE 5 mg/Acetaminophen 325 mg TAB PO ×2 (07:08→07:30)
[2023-12-25] MEDS: Docusate Sodium 100 MG CAP PO (07:30)
--- NOTE | 2023-12-25 08:52 | W.PM.OBPNV1 ---
Date of service: 12/25/23 Time of Service: 08:52 Assessment and Plan Assessment and plan (1) Status post primary low transverse section: Status: Acute Assessment and plan: Patient postop day 2 status post primary low-transverse section for labor arrest and prolonged rupture of membranes. Discharged today. Baby has been transferred to [facility] for tracheoesophageal fistula and will need repair. Prescription was sent to the pharmacy. Patient will follow-up with me in the office in 1 to 2 weeks. Subjective Subjective Interval history: Patient seen and examined this morning. Ready for discharge. Millan catheter is out. Voiding without difficulty. Vital signs are stable. She is afebrile. She continues to pump in order to provide breastmilk for her baby was been transferred to the NICU. The anticipation is for surgical intervention for the baby tomorrow for repair of the tracheoesophageal fistula. We will prepare for discharge for mom today. She will follow-up in the office in 1 in 2 weeks if able. All questions answered Exam Physical Exam Vital signs: Temp Pulse Resp BP Pulse Ox 98 F 70 18 118/69 99 12/24/23 20:05 12/24/23 20:05 12/24/23 20:05 12/24/23 20:05 12/24/23 13:09 Vital Signs Reviewed: Yes Constitutional Constitutional: no acute distress HEENT Exam HEENT Exam: Normal Neck Exam Neck Exam: Normal Respiratory Exam Respiratory Exam: Normal Cardiovascular Exam Cardiovascular Exam: Normal Abdominal Exam Abdomen: Tender Comments: Mepilex in place. No shadowing. No surrounding erythema. Fundal Exam Fundus: Below Umbilicus and Firm Extremities Exam Extremity Exam: Normal and Edema (1+ bilateral); negative Calf Tenderness Neurological Exam Neurological Exam: Normal Psychiatric Exam Psychiatric Exam: Normal Results Hemoglobin/Hematocrit: Hgb 11.1 g/dL (11.2-15.7) L D 12/24/23 06:10 Hct 33.0 % (36.0-46.0) L 12/24/23 06:10 Abnormal Lab Findings: Abnormal Labs 12/23/23 12/24/23 09:28 06:10 WBC 16.19 H 11.09 H RBC 3.49 L Hgb 11.1 L D Hct 33.0 L Absolute Neutrophils 8.64 H Absolute Monocytes 0.84 H
--- NOTE | 2023-12-25 09:00 | W.PM.OBDISCH ---
Date of service: 12/25/23 Time of Service: 09:00 DS: Diagnosis Discharge Diagnosis (1) Status post primary low transverse section: Status: Acute Asessment and Plan: Postop day 2 status post primary low-transverse section. Doing well. Discharge home. Baby in the NICU. 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 Discharge Plan Disposition Patient Disposition: Home Condition: Good Discharge Details Reason For Visit: Term PROM, Prolonged Labor Admit Date/Time: 12/23/23 09:02 Admit Provider: Sara Coleman Attending Provider: Sara Coleman Primary Care Provider: VICTORIA ZAMAN Hospital Course Hospital Course: Patient was transferred into the facility from home child specialist care. She had prolonged rupture of membranes. She upon arrival here, she received epidural for pain control and had a labor arrest. There was no progress beyond 7 cm. She declined Pitocin augmentation. She excepted surgical intervention with abdominal via primary low-transverse section. Patient herself did very well in the postoperative period. Her hemoglobin stable at 11.1. She had no fever. She did receive 2 doses of penicillin prior to delivery, along with Ancef and azithromycin for surgical site infection prophylaxis. She has no signs of infection or endometritis. As of note, her baby was transferred to [facility] post operative day #1 with a tracheoesophageal fistula in need of correction and repair. She is discharged to home day #2. She will transition to [facility] as an outpatient. Will see her in the office in 1 to 2 weeks for routine postoperative care. Supportive services given. Home Meds and New Rx's Prescriptions: New oxycodone-acetaminophen [Percocet] 5-325 mg tablet 1 tab PO Q6H PRNQty: 14 0RF ibuprofen 600 mg tablet 600 mg PO Q6H PRNQty: 60 1RF docusate sodium [Colace] 100 mg capsule 100 mg PO BID Qty: 30 0RF No Action One Daily [id number] mg-mcg-mg combo pack PO Discharge Instructions Stand Alone Forms: BC Instructions, BC Discharge Instruc Activity:: Activity as Tolerated Equipment/Supplies:: No Equipment Needed Diet:: As Tolerated Discharge Orders Discharge Orders: Discharge Order (Routine); Ordered 12/25/23 Ordered By: Augusta Gallego OB:DS Summary Summary Episiotomy Description: None Laceration Description: None Laceration Extension: N/A Contraception Discussed Contraception Discussed: No, [place] Infant Gender-Baby A: Female weight: 6 lb 2.238 oz Status at Discharge Functional status at discharge: independent ambulation Overall status at discharge: patient is progressing back to baseline Mental Status: mental status grossly normal Speech and Movement: speech and movement normal Mood: congruent mood Affect: normal affect Quality:SDOH Health Related Social Needs: No Data to Display Exam Physical Exam Vital signs: Temp Pulse Resp BP Pulse Ox 98 F 70 18 118/69 99 12/24/23 20:05 12/24/23 20:05 12/24/23 20:05 12/24/23 20:05 12/24/23 13:09 Narrative: See physical exam from progress note dated 12/25/2023 [facility] All Active Problems (Updated 12/24/23 @ 08:50 by Augusta Gallego DO) Uterine fibroid (Acute) Status post primary low transverse section (Acute) Primary low-transverse section 12/23/2023 female Ada. Markedly prolonged rupture of membranes. Labor arrest. Advanced maternal age, 1st (Acute) Slow progress in first stage of labor (Acute) 40 weeks gestation of (Acute) Prolonged rupture of membranes (Acute) (Acute) Complaint of feeling depressed (Acute) Anxiety (Chronic) Medical History (Updated 12/24/23 @ 08:50 by Augusta Gallego DO) Marijuana use Cigarette smoker Ovarian cyst Panic attacks Colon polyps Irritable bowel syndrome Spotting in early DUB (dysfunctional uterine bleeding) Family History (Updated 03/09/23 @ 16:24 by Mary Membreno RN) Mother No problems noted. Father Cancer Maternal Grandmother Breast cancer Hypertension Maternal Grandfather Colon cancer Paternal Grandfather No problems noted. Paternal Grandmother No problems noted. Social History (Updated 03/09/23 @ 16:21 by Mary Membreno RN) Smoking/Tobacco Use Status: Former Tobacco Use tobacco type: cigarettes Quit Date: 02/28/19 Tobacco: How many years used: 10 Second Hand Exposure: Yes Smoking risk assessment performed?: Yes Alcohol Intake: current Alcohol Intake frequency: a few times a week Alcohol type: wine and hard liquor Drug use: Daily Substance use type: marijuana Adopted: No Caregiver/Support person: No Foster care: No Household members: significant other Housing: house Number of Children: 0 Communication Needs: None Education Level: college Do you need help understanding health information?: Never current occupation: [employer] Pets and animals: Yes Pets and animals: cat(s) and dog(s) Sexually active: Yes Do you think of yourself as: straight/heterosexual Current gender identity: female What is your relationship status?: living with partner How often do you talk on the phone with friends or family?: three or more times per week How often do you get together with friends or relatives?: once per week How often do you attend mandaeism or mosque services?: decline to answer Do you belong to any clubs or organized social groups?: no Panel score (0-1 are the most socially isolated patients): 2 What type of physical activity do you participate in: walking and yoga Duration: 30-45 minutes/day Frequency: daily Dora/Confucianist: Non hinduism Special dora needs: No Agree to transfusion: Yes Seatbelt use: always Helmet use: Yes Helmet use: sometimes Drive intox or ride w/intox party bus driver: No Working smoke detector in home: Yes Carbon monox detector in home: Yes Firearms in home: Yes Firearms unloaded and locked: Yes Do you feel safe at home: Yes Do you feel safe in your relationship?: Yes Victim of physical abuse: No Victim of emotional abuse: No Victim of sexual abuse: No History History 3 Para 0 Hx # Term Pregnancies 0 Multiple births 0 Hx # Pregnancies 0 Ectopic pregnancies 0 AB induced 1 Hx Number of Living Children 0 AB spontaneous 1 DS: Data Vitals/I&O Vitals and I&O: Vital Signs Temperature 98 F 12/24/23 20:05 Temperature Source Oral 12/24/23 20:05 Pulse 70 12/24/23 20:05 Pulse Rhythm Regular 12/24/23 20:05 Respiratory Rate 18 12/24/23 20:05 Blood Pressure 118/69 12/24/23 20:05 Blood Pressure Mean 85 12/24/23 20:05 Pulse Oximetry 99 12/24/23 13:09 Pain Level 4 12/25/23 07:08 Intake & Output 12/24/23 12/24/23 12/25/23 11:59 23:59 11:59 Intake Total 1150 / 1150 Output Total 1000 / 3100 2100 / 3100 1700 / 1700 Balance -1000 / -3100 -2100 / -3100 -550 / -550 Intake: IV 1150 / 1150 Output: Urine 1000 / 3100 2099 / 3100 1700 / 1700 Other: Urine Color Pale Pale Urine Appearance Clear
[2023-12-25 09:01] VITALS: BP 110/65; PULSE 65; RESP 16; TEMP 36.6; O2SAT 99
== END 2023-12-25 09:50 | disposition home or self-care (01) | DRG 787 ==
PROVIDERS: Obstetrics & Gynecology; Admitting Provider Advanced Practice Midwife; PCP Nurse Practitioner Family; Visit Provider Advanced Practice Midwife
PROC: 10D00Z1 Extraction of Products of Conception, Low, Open Approach (ICD-10-PCS; CPT 59514; principal; 2023-12-23 16:10)
DX: O42.12 Full-term premature rupture of membranes, onset of labor more than 24 hours following rupture (principal); O99.324 Drug use complicating childbirth; Z37.0 Single live birth; O62.1 Secondary uterine inertia; Z3A.40 40 weeks gestation of pregnancy; O75.81 Maternal exhaustion complicating labor and delivery; O99.344 Other mental disorders complicating childbirth; F41.8 Other specified anxiety disorders; F12.90 Cannabis use, unspecified, uncomplicated; O99.62 Diseases of the digestive system complicating childbirth; O34.13 Maternal care for benign tumor of corpus uteri, third trimester; D25.9 Leiomyoma of uterus, unspecified; O69.3XX0 Labor and delivery complicated by short cord, not applicable or unspecified; K58.9 Irritable bowel syndrome, unspecified
CPT/HCPCS: 59514; 36415; 80307; 85027; 86850; 86900; 86901; 85025; J0131; J0456; J0665; J0690; J1100; J1885; J2274; J2371; J2405; J2540; J3010